=== PATIENT | female | born 1975 | race Caucasian/White ===

== ENCOUNTER → 2016-10-01 | Outpatient (CLI) | payer SELFPAY ==
[~2016-10-01] MED LIST: ANTIBIOTIC PO; ANTIVERT25 MG PO; BACTRIM DS 8001 TA1 PO; BIRHT CONTROL; DAYPRO600 M1 PO; IBU800 MG PO; LIDEX 0.05% CRE15 GM T; MOTRIN800 MG PO; NKHM; PREDNISONE20 M1 PO; WATER PILL PO; ZOFRAN ODT4 MG PO
== END | disposition home or self-care (01) ==
LOC: RAD 08:33
DX: M25.531 Pain in right wrist (principal); W19.XXXA Unspecified fall, initial encounter

== ENCOUNTER → 2020-04-08 | Outpatient (CLI) | payer OTHER | END | disposition home or self-care (01) | LOC: COVID19 14:52 | PROVIDERS: ATTEND Student in an Organized Health Care Education/Training Program | DX: Z20.828 Contact with and (suspected) exposure to other viral communicable diseases (principal) ==

== ENCOUNTER → 2021-04-17 | Outpatient (CLI) | payer OTHER | END | disposition home or self-care (01) | LOC: US 00:12 | PROVIDERS: ATTEND Nurse Practitioner Women's Health | DX: R10.2 Pelvic and perineal pain (principal); Z97.5 Presence of (intrauterine) contraceptive device ==

== ENCOUNTER → 2021-07-23 | Outpatient (CLI) | payer OTHER | END | disposition home or self-care (01) | LOC: MAMMO 00:32 | PROVIDERS: ATTEND Nurse Practitioner Women's Health | DX: Z12.31 Encounter for screening mammogram for malignant neoplasm of breast (principal) ==

== ENCOUNTER → 2021-08-19 | Outpatient (CLI) | payer OTHER | END | disposition home or self-care (01) | LOC: US 13:30 | PROVIDERS: ATTEND Nurse Practitioner Women's Health | DX: N60.11 Diffuse cystic mastopathy of right breast (principal) ==